=== PATIENT | female | born 1965 | race Caucasian/White ===

== ENCOUNTER 2025-03-04 00:36 | Inpatient (IN) ==
[2025-03-04] MEDS: SODIUM CHLORIDE 0.9% 1,000 ML IV ONE (01:02)
[2025-03-04] MEDS: MoRPHine SULFATE 4 MG/ML 1 ML CARP\\VIAL IV PRN (01:03)
[2025-03-04] MEDS: ONDANSETRON INJ 2 MG/ML 2 ML VIAL IV STA (01:03)
[2025-03-04 01:25] LABS: Hematocrit (blood only) 40.9 % (37.0-47.0); Hemoglobin 13.0 g/dl (12.0-16.0); Immature Granulocytes # (auto) 0.02 K/uL (0.01-0.20); Immature Granulocytes % (auto) 0.1 %; Mean Corpuscular Hemoglobin 27.4 pg (25.0-34.0); Mean Corpuscular Volume 86.3 fL (80.0-100.0); Platelet Count 344 K/uL (130-400); RDW Standard Deviation 39.8 fL (36.4-46.3); Red Blood Count 4.74 M/uL (4.20-5.40); White Blood Count 13.56 K/ul (4.8-10.8)
[2025-03-04 01:42] LABS: Alanine Aminotransferase 14.0 U/L (7-52); Albumin Globulin Ratio 1.5 (0.9-2); Alkaline Phosphatase 56.0 U/L (34-104); Anion Gap 7.0 (3-11); Bilirubin,Total 0.3 mg/dl (0.2-1.0); Blood Urea Nitrogen 16.0 mg/dl (6-23); Calcium 9.4 mg/dl (8.6-10.3); Carbon Dioxide 29.0 mmol/L (21-32); Chloride 104.0 mmol/L (98-107); Creatinine Clr Calc Pharmacy 57.2 ml/min; Globulin 2.8 gm/dl (2.5-4.0); Glucose 110.0 mg/dl (70-99(Fasting)); Lipase 81.0 U/L (11-82); Potassium 3.7 mmol/L (3.5-5.1); Sodium 140.0 mmol/L (136-145); Total Protein 7.0 gm/dl (6.0-8.3)
[2025-03-04] MEDS: OPTIRAY 320 100ml IV ONE (02:01)
[2025-03-04 02:21] LABS: Appearance Urine Clear (Clear); Bacteria Urine Automated None Seen (None Seen); Cast Urine Automated 0-2 /lpf (0-2); Glucose Urine UA Negative (Negative); RBC Urine Automated 0-2 /hpf (0-2)
--- NOTE | 2025-03-04 03:28 | CT Scan Report ---
EXAM: CT abd pelvis IV con only CLINICAL HISTORY: right side pain TECHNIQUE: CT of the abdomen and pelvis was performed with IV contrast (93 cc Optiray 320), with the following protocol: axial images with, and reconstructed coronal and sagittal images. One of the following dose reduction techniques was utilized for this exam: Automated exposure control, adjustment of the mA and/or kV according to patient size, and use of iterative reconstruction. (CTDI: 21.12 mGy, DLP: 1048.60 mGy*cm) COMPARISON: Prior CT dated 05/12/2016 FINDINGS: Appendix: The appendix is retrocecal in position. It is thickened (reaching 13 mm in girth), with heterogeneous peripheral enhancement as well as chance-appendiceal fat stranding and peritoneal reflection thickening. No evidence of appendiceal abscess or perforation. Bowel: The cecum and ascending colon are distended and loaded with fecal matter; the cecum reaches 5.9 cm in maximum diameter. Multiple sigmoid colon diverticulae, with no related pathological mural thickening or chance-colic fat stranding. No evidence of bowel obstruction or wall thickening. Liver: Enlarged in size, measuring 19 cm in the long axis. Normal shape and density. Left lobe segment 2 hypodense focal lesion, measuring 16 x 13 mm (was about 6 x 5 mm). Hepatic vasculature and biliary ducts are unremarkable. Gallbladder and Biliary System: The gallbladder is normal in size and shape. No wall thickening, pericholecystic fluid, or gallstones were identified. The common bile duct is normal in caliber without dilation. Pancreas: The pancreatic head, body, and tail are visualized and appear normal in size and density. No pancreatic masses or calcifications were noted. The pancreatic duct is not dilated. Spleen: Normal in size, shape, and density. No splenic lesions or masses were identified. Kidneys and Adrenal Glands: Both kidneys are normal in size, shape, position, and cortical thickness. No renal calculi or hydronephrosis. The adrenal glands are unremarkable. Urinary Bladder: Normal in contour and wall thickness. No intraluminal lesions identified. Uterus and Cervix: Normal in size and contour. No masses or abnormal thickening. Ovaries: Not well visualized, but no gross adnexal lesions noted. Peritoneal and Retroperitoneal Structures: No free fluid or abnormal fluid collections were identified within the abdomen or pelvis. No lymphadenopathy was noted. Bones and Soft Tissues: The bones and soft tissues are unremarkable. No fractures or abnormal masses were identified. IMPRESSION: 1. Picture suggestive of acute appendicitis - new. 2. Cecal and ascending colon distention with fecal load. 3. Non-complicated sigmoid diverticulosis - new. 4. Left hepatic lobe non-enhancing cystic-looking focal lesion - increased in size. Electronically signed by Bg Singh 03-04-2025 03:27 AM
[2025-03-04] MEDS: metroNIDAZOLE 500 MG/100 ML BAG IV STA (04:03)
[2025-03-04] MEDS: CIPROFLOXACIN / D5W 400 MG/200 ML BAG IV STA (04:03)
--- NOTE | 2025-03-04 04:10 | Surgery Consultation ---
Date of Consultation March 04, 2025 Assessment & Plan (1) Appendicitis: Due to the patient's clinical presentation and findings on CT scan the patient be admitted to the hospital. I did discuss with the treating clinician in the emergency department and due to the suspected portal vein thrombus that she is going to be admitted on the medical service. Surgical recommendations are as follows: Analgesics to be provided Antiemetics to be provided She will be hydrated with IV fluids Antibiotics were initiateddue to her penicillin allergy she will be given Cipro and Flagyl Anticipation of potential appendectomy I will check a preoperative chest x- ray, EKG, coagulation studies I have discussed directly with the hospitalist service and asked them to provide recommendations concerning the patient's portal vein thrombosis as to whether this would require delaying any potential appendectomy Would recommend keeping the patient n.p.o. for the present time as she may require appendectomy, but as noted above this will be depend on medical recommendations concerning the possible portal vein thrombosis Would recommend utilizing only SCDs for the present time for DVT prevention until his ascertain whether or not the patient will require full anticoagulation for the potential portal vein thrombosis or if she requires surgical intervention At the time of my interview the patient was nontoxic-appearingshe was normotensive without tachycardia or fever. Additional recommendations be forthcoming based on her clinical course as it unfolds Addendum: Following my initial visit with the patient the following items were completed: Coagulation studies which showed no abnormalities Checks x-ray that shows no evidence of pneumonia EKG that shows normal sinus rhythm without changes indicative of acute ischemia test that was negative Addendum: Gallbladder ultrasound has been formally been read by radiology and the interpreting radiologist did not comment on portal vein thrombosis. I discussed these findings with the primary medical service and they feel they would like to have gastroenterology review images to ensure there is no portal vein thrombosis. If no portal vein thrombosis is present we will likely proceed with appendectomy pending OR availability Supervising Physician Co-Signing Physician Notes I independently saw and examined the patient, and I agree with the assessment and plan of care. History of Present Illness Reason for Consultation: Abdominal pain History of Present Illness This is a 59-year-old female who presented to the emergency department secondary to abdominal pain that began approximate 10:00 PM on 03/03/2025. Patient notes that the pain is located primarily in the right lower quadrant with some radiation to her right flank. She does not report any other modifying or mitigating factors. She denies any nausea or vomiting and denies any fevers, shakes, or chills. Patient has had prior abdominal surgeries in the form of a . She also reports that she has had a uterine ablation. Since arrival to the hospital the patient has had labs and imaging which I independently reviewed. Patient did have a CT scan of the abdomen pelvis that showed a retrocecal appendix which appeared to be thickened measuring appr oximately 13 mm in girth. There are some periappendiceal fat stranding raising concern for acute appendicitis. Labs include a CBC were white blood cell count was elevated 13.5. Hemoglobin and hematocrit as well as the platelet count were normal. Chemistry profile showed sodium and potassium as well as BUN and creatinine were within normal range. Urinalysis showed 6-10 white blood cells per high-power field and 2+ leukocyte esterase. There were no nitrites or bacteria noted on this study. In addition, the patient did have a gallbladder ultrasound which has not been formally read by radiology. The inter com servicer did notify the clinician in the emergency department that patient had a potential portal vein thrombosis. At the time of my interview she was resting comfortably in bed and she was in no distress Allergies Allergy/AdvReac Type Severity Reaction Status Date / Time pollen extracts Allergy Intermediate ITCHY Verified 03/04/25 01:59 EYES, SNEEZING Penicillins AdvReac Intermediate nausea/vomi Verified 03/04/25 01:59 ting Home Medications Medication Instructions Recorded Confirmed Type albuterol sulfate 90 mcg/actuation 1 inh inhalation DIRECTED PRN 03/04/25 03/04/25 History aerosol inhaler Shortness Of Breath Or Wheezing montelukast 10 mg tablet 10 mg PO DAILY PRN Congestion 03/04/25 03/04/25 History ([place]) Patient History Medical History History of menorrhagia Migraine headache History of abnormal mammogram Surgical History Status post hysteroscopic ablation of endometrium S/P section S/P breast biopsy Family History Other No significant family history Social History Smoking Status: Never smoker Hx Alcohol Use: No Hx Substance Use: Yes Substance Use Type Other:: ketamine Preferred Language: German Beliefs That Will Affect Care: None Current Living Situation: Spouse Other Information That Helps Us Care for You: No Feels Safe at Home: Yes Safety Concerns: Feels Safe At This Time Review of Systems Review of Systems: All systems reviewed & are unremarkable except as noted in HPI & below Physical Exam Constitutional: WD/WN, vitals as above Eyes: no conjunctival abnormality ENMT: Ears: no hearing impairment and no external ear abnormality Mouth: no oropharynx abnormality Neck: trachea midline Respiratory: normal respiratory effort; no respiratory distress and no labored breathing Cardiovascular: Rate/Rhythm: regular rate and regular rhythm Gastrointestinal (Abdomen): Abdomen is soft without distention. There is no rebound tenderness or guarding the patient did have pain with palpation of the right lower quadrant McBurney's point. Rovsing sign is also noted to be positive. Musculoskeletal: No calf tenderness. Pedal pulses are palpable Skin: no rashes Neurologic: moves all extremities Psychiatric: A+Ox3, euthymic affect Results & Data Vital Signs (Past 12 Hours) Vital Signs Temp Pulse Pulse Resp BP BP Pulse Ox 03/04/25 02:00 36.7 C 73 19 121/81 93 03/04/25 01:09 82 03/04/25 00:52 36.7 C 86 22 155/98 H 96 03/04/25 00:39 36.4 C L 90 19 130/85 97 O2 Del Method 03/04/25 02:00 Room Air 03/04/25 01:09 03/04/25 00:52 Room Air 03/04/25 00:39 Room Air PG Care Time/CCT Total # of Minutes Spent Total Time Spent with Patient: Total time spent is greater than 50% in coordination of care (as documented) at patient's floor/unit and/or counseling patient: Coding Level of Care Code 31701 IN/OBS CONSULT LVL 5,80M Diagnoses Appendicitis K37
[2025-03-04 04:21] LABS: Pregnancy Test, Serum Negative (Negative)
[2025-03-04 04:34] LABS: INR 0.9 (0.9-1.1); Partial Thromboplastin Time 26 Seconds (21-31); Prothrombin Time 10.0 Seconds (9.0-12.0)
--- NOTE | 2025-03-04 04:49 | Ultrasound Report ---
EXAM: US gallbladder CLINICAL HISTORY: Right side pain. TECHNIQUE: Limited ultrasound of the liver and gallbladder was performed in greyscale and Doppler. Multiple images were obtained in transverse and longitudinal planes. COMPARISON: CT dated 03/04/2025 01:08:00 MOLDED [employer] INSPECTOR was reviewed. FINDINGS: Liver: Mild hepatomegaly (16.6 cm) with normal echotexture. Anechoic structure adjacent to the left portal vein demonstrates no internal flow or echogenic debris. The remaining hepatic vasculature is unremarkable. Gallbladder: Normal gallbladder wall thickness (1.5 mm). The gallbladder is normal in size and contour. No cholelithiasis, wall thickening, pericholecystic fluid, or sonographic Carbajal sign. Biliary Tree: The common bile duct measures 4.9 mm (normal caliber). No biliary dilation or choledocholithiasis. Pancreas: Visualized portions appear normal; evaluation limited by overlying bowel gas. The pancreatic duct measures 2 mm. Right Kidney: No hydronephrosis, masses, or calculi. IMPRESSION: 1. No cholelithiasis. 2. Anechoic structure adjacent to the left portal vein without flow, correlating with prior CT consistent with a benign cyst. Unchanged. 3. Mild hepatomegaly. Unchanged. 4. Findings correlate with prior recent CT abdomen. Electronically signed by Bg Singh 03-04-2025 04:49 AM
[2025-03-04] MEDS: SODIUM CHLORIDE 0.9% 1,000 ML IV SCH (05:02)
--- NOTE | 2025-03-04 05:06 | History & Physical Report ---
Date of Service March 04, 2025 Assessment & Plan (1) Appendicitis: Plan: 59-year-old female with past medical history significant for irritable bowel syndrome, asthma moderate persistent presents with abdominal pain. Pain started tonight at 10 PM in the epigastric and the right side of the abdomen region. Pain was 8/10 in severity when she came in and with pain medication pain is improved. No nausea. No fevers. No chest pain or shortness of breath. No headache. No runny nose or sore throat. No cough. Normal bowel and bladder movements. Hemodynamics are okay. Appendicitis On CAT scan N.p.o. IV fluids Pain control Empiric Cipro and Flagyl as patient is allergic to penicillin Surgery consulted Plan for surgery if no PVT confirmed Close monitor Question of portal vein thrombosis Concern of portal vein thrombosis on ultrasound Will consult GI for further recommendation for any further imagings Asthma Continue home inhalers stable currently Likely NSAID induced ulcerations of ascending and transverse colon ,colonoscopy in December 2017 Her symptoms resolved with discontinuation of NSAIDs.Completed course of budesonide at that time as per GI notes in [facility]. Because symptoms improved repeat colonoscopy was deferred at that time Plan was to repeat colonoscopy in 5 years. DVT prophylaxis SCDs Disposition Medical floor Full code. History of Present Illness Chief Complaint: Abdominal pain Primary Care Provider: Dilcia Jaimes, 59-year-old female with past medical history significant for irritable bowel syndrome, asthma moderate persistent presents with abdominal pain. Pain started tonight at 10 PM in the epigastric and the right side of the abdomen region. Pa in was 8/10 in severity when she came in and with pain medication pain is improved. No nausea. No fevers. No chest pain or shortness of breath. No headache. No runny nose or sore throat. No cough. Normal bowel and bladder movements. Hemodynamics are okay. Past medical history. As mentioned above. Past surgical history. Breast lesion excision. . Colonoscopy biopsy. EGD. Endometrial ablation. Social history. . No smoking. No alcohol use. No drug use. Family history. Father had dementia. Stroke. Brother had epilepsy. Maternal grandmother had stroke. Allergies Allergy/AdvReac Type Severity Reaction Status Date / Time pollen extracts Allergy Intermediate ITCHY Verified 03/04/25 01:59 EYES, SNEEZING Penicillins AdvReac Intermediate nausea/vomi Verified 03/04/25 01:59 ting Home Medications Medication Instructions Recorded Confirmed Type albuterol sulfate 90 mcg/actuation 1 inh inhalation DIRECTED PRN 03/04/25 03/04/25 History aerosol inhaler Shortness Of Breath Or Wheezing montelukast 10 mg tablet 10 mg PO DAILY PRN Congestion 03/04/25 03/04/25 History (Yadira) Past Med/Surg History Problem List Appendicitis Salmonella enteritis (Acute) Medical History History of menorrhagia Migraine headache History of abnormal mammogram Surgical History Status post hysteroscopic ablation of endometrium S/P section S/P breast biopsy Family History Other No significant family history Social History Smoking Status: Never smoker Hx Alcohol Use: No Hx Substance Use: Yes Substance Use Type Other:: ketamine Preferred Language: Kenyan Beliefs That Will Affect Care: None Current Living Situation: Spouse Other Information That Helps Us Care for You: No Feels Safe at Home: Yes Safety Concerns: Feels Safe At This Time Review of Systems Review of Systems: All systems reviewed & are unremarkable except as noted in HPI & below Physical Exam Physical Exam: General-Not in distress Head- atraumatic Eyes- PERRL. ENT- oropharynx clear Neck- supple, no JVD. Lungs- clear to auscultation no wheezing or crackles Heart- regular rhythm; no murmur, no gallop. Abdomen- normal bowel sounds, soft, tenderness in ruq and rlq region, mild guarding, no distension Extremities- no pretibial edema, no erythema seen Neuro- alert, oriented PERRL, no facial palsy; no dysarthria; moves extremities Results & Data Results & Data Vital Signs (Past 12 Hours) Vital Signs Temp Pulse Pulse Resp BP BP Pulse Ox 03/04/25 04:00 36.7 C 90 18 165/97 H 93 03/04/25 02:00 36.7 C 73 19 121/81 93 03/04/25 01:09 82 03/04/25 00:52 36.7 C 86 22 155/98 H 96 03/04/25 00:39 36.4 C L 90 19 130/85 97 O2 Del Method 03/04/25 04:00 Room Air 03/04/25 02:00 Room Air 03/04/25 01:09 03/04/25 00:52 Room Air 03/04/25 00:39 Room Air Diagnostic Findings Laboratory Results WBC 13.56 K/ul (4.8-10.8) H 03/04/25 00:54 RBC 4.74 M/uL (4.20-5.40) 03/04/25 00:54 Hgb 13.0 g/dl (12.0-16.0) 03/04/25 00:54 POC Hgb 13.9 g/dl (12.0-16.0) 03/04/25 00:59 Hct 40.9 % (37.0-47.0) 03/04/25 00:54 POC Hct 41 % (37-47) 03/04/25 00:59 MCV 86.3 fL (80.0-100.0) 03/04/25 00:54 MCH 27.4 pg (25.0-34.0) 03/04/25 00:54 MCHC 31.8 g/dL (32.0-36.0) L 03/04/25 00:54 RDW Std Deviation 39.8 fL (36.4-46.3) 03/04/25 00:54 RDW Coeff of Amanda 12.6 % (11.5-14.5) 03/04/25 00:54 Plt Count 344 K/uL (130-400) 03/04/25 00:54 MPV 9.5 fL (9.4-12.4) 03/04/25 00:54 Immature Gran % (Auto) 0.1 % 03/04/25 00:54 Neut % (Auto) 65.6 % 03/04/25 00:54 Lymph % (Auto) 27.7 % 03/04/25 00:54 [place] % (Auto) 5.4 % 03/04/25 00:54 Eos % (Auto) 0.8 % 03/04/25 00:54 Baso % (Auto) 0.4 % 03/04/25 00:54 Neut # (Auto) 8.89 K/uL (1.40-6.50) H 03/04/25 00:54 Lymph # (Auto) 3.76 K/uL (1.20-3.40) H 03/04/25 00:54 [place] # (Auto) 0.73 K/uL (0.11-0.59) H 03/04/25 00:54 Eos # (Auto) 0.11 K/uL (0.00-0.50) 03/04/25 00:54 Baso # (Auto) 0.05 K/uL (0.00-0.20) 03/04/25 00:54 Immature Gran # (Auto) 0.02 K/uL (0.01-0.20) 03/04/25 00:54 PT 10.0 Seconds (9.0-12.0) 03/04/25 00:49 INR 0.9 (0.9-1.1) 03/04/25 00:49 APTT 26 Seconds (21-31) 03/04/25 00:49 PTT Ratio 1.0 03/04/25 00:49 POC Sodium 142 mmol/L (135-144) 03/04/25 00:59 Sodium 140 mmol/L (136-145) 03/04/25 00:54 POC Potassium 3.5 mmol/L (3.3-5.0) 03/04/25 00:59 Potassium 3.7 mmol/L (3.5-5.1) 03/04/25 00:54 POC Chloride 102 mmol/L (101-112) 03/04/25 00:59 Chloride 104 mmol/L (98-107) 03/04/25 00:54 Carbon Dioxide 29 mmol/L (21-32) 03/04/25 00:54 POC Total CO2 27 mmol/L (24-31) 03/04/25 00:59 Anion Gap 7 (3-11) 03/04/25 00:54 POC Anion Gap 17.0 mmol/L (16-25) 03/04/25 00:59 POC BUN 17 mg/dl (7-18) 03/04/25 00:59 BUN 16 mg/dl (6-23) 03/04/25 00:54 Creatinine 1.12 mg/dl (0.6-1.2) 03/04/25 00:54 POC Creatinine 1.2 mg/dl (0.6-1.3) 03/04/25 00:59 Est Cr Clr Drug Dosing 57.2 ml/min 03/04/25 00:54 eGFR 57.35 03/04/25 00:54 BUN/Creatinine Ratio 14.3 (10-20) 03/04/25 00:54 Glucose 110 mg/dl (70-99(Fasting)) H 03/04/25 00:54 POC Glucose (other) 114 mg/dl (70-99) H 03/04/25 00:59 Calcium 9.4 mg/dl (8.6-10.3) 03/04/25 00:54 POC Ioniz Calcium [place] 1.15 mmol/l (1.12-1.32) 03/04/25 00:59 Total Bilirubin 0.3 mg/dl (0.2-1.0) 03/04/25 00:54 AST 15 U/L (13-39) 03/04/25 00:54 ALT 14 U/L (7-52) 03/04/25 00:54 Alkaline Phosphatase 56 U/L (34-104) 03/04/25 00:54 Total Protein 7.0 gm/dl (6.0-8.3) 03/04/25 00:54 Albumin 4.2 gm/dl (3.4-5.0) 03/04/25 00:54 Globulin 2.8 gm/dl (2.5-4.0) 03/04/25 00:54 Albumin/Globulin Ratio 1.5 (0.9-2) 03/04/25 00:54 Lipase 81 U/L (11-82) 03/04/25 00:54 HCG, Qual Negative (Negative) 03/04/25 00:49 Urine Color Yellow 03/04/25 02:12 Urine Appearance Clear (Clear) 03/04/25 02:12 Urine pH 7.0 (4.5-7.5) 03/04/25 02:12 Ur Specific [place] 1.025 (1.000-1.030) 03/04/25 02:12 Urine Protein Negative (Negative) 03/04/25 02:12 Urine Glucose (UA) Negative (Negative) 03/04/25 02:12 Urine Ketones Negative (Negative) 03/04/25 02:12 Urine Blood Negative (Negative) 03/04/25 02:12 Urine Nitrite Negative (Negative) 03/04/25 02:12 Urine Bilirubin Negative (Negative) 03/04/25 02:12 Urine Urobilinogen Negative (Negative) 03/04/25 02:12 Ur Leukocyte Esterase 2+ (Negative) H 03/04/25 02:12 Urine WBC (Auto) 6-10 /hpf (0-5) H 03/04/25 02:12 Urine RBC (Auto) 0-2 /hpf (0-2) 03/04/25 02:12 U Hyaline Cast (Auto) 0-2 /lpf (0-2) 03/04/25 02:12 U Epithel Cells (Auto) 6-10 /hpf (0-2) H 03/04/25 02:12 Urine Bacteria (Auto) None Seen (None Seen) 03/04/25 02:12 Urine Comment 03/04/25 02:12 Impressions Abdomen/Pelvis CT 03/04/25 00:54 EXAM: CT abd pelvis IV con only CLINICAL HISTORY: right side pain TECHNIQUE: CT of the abdomen and pelvis was performed with IV contrast (93 cc Optiray 320), with the following protocol: axial images with, and reconstructed coronal and sagittal images. One of the following dose reduction techniques was utilized for this exam: Automated exposure control, adjustment of the mA and/or kV according to patient size, and use of iterative reconstruction. (CTDI: 21.12 mGy, DLP: 1048.60 mGy*cm) COMPARISON: Prior CT dated 05/12/2016 FINDINGS: Appendix: The appendix is retrocecal in position. It is thickened (reaching 13 mm in girth), with heterogeneous peripheral enhancement as well as chance-appendiceal fat stranding and peritoneal reflection thickening. No evidence of appendiceal abscess or perforation. Bowel: The cecum and ascending colon are distended and loaded with fecal matter; the cecum reaches 5.9 cm in maximum diameter. Multiple sigmoid colon diverticulae, with no related pathological mural thickening or chance-colic fat stranding. No evidence of bowel obstruction or wall thickening. Liver: Enlarged in size, measuring 19 cm in the long axis. Normal shape and density. Left lobe segment 2 hypodense focal lesion, measuring 16 x 13 mm (was about 6 x 5 mm). Hepatic vasculature and biliary ducts are unremarkable. Gallbladder and Biliary System: The gallbladder is normal in size and shape. No wall thickening, pericholecystic fluid, or gallstones were identified. The common bile duct is normal in caliber without dilation. Pancreas: The pancreatic head, body, and tail are visualized and appear normal in size and density. No pancreatic masses or calcifications were noted. The pancreatic duct is not dilated. Spleen: Normal in size, shape, and density. No splenic lesions or masses were identified. Kidneys and Adrenal Glands: Both kidneys are normal in size, shape, position, and cortical thickness. No renal calculi or hydronephrosis. The adrenal glands are unremarkable. Urinary Bladder: Normal in contour and wall thickness. No intraluminal lesions identified. Uterus and Cervix: Normal in size and contour. No masses or abnormal thickening. Ovaries: Not well visualized, but no gross adnexal lesions noted. Peritoneal and Retroperitoneal Structures: No free fluid or abnormal fluid collections were identified within the abdomen or pelvis. No lymphadenopathy was noted. Bones and Soft Tissues: The bones and soft tissues are unremarkable. No fractures or abnormal masses were identified. IMPRESSION: 1. Picture suggestive of acute appendicitis - new. 2. Cecal and ascending colon distention with fecal load. 3. Non-complicated sigmoid diverticulosis - new. 4. Left hepatic lobe non-enhancing cystic-looking focal lesion - increased in size. Electronically signed by Bg Singh 03-04-2025 03:27 AM Gallbladder Ultrasound 03/04/25 00:54 EXAM: US gallbladder CLINICAL HISTORY: Right side pain. TECHNIQUE: Limited ultrasound of the liver and gallbladder was performed in greyscale and Doppler. Multiple images were obtained in transverse and longitudinal planes. COMPARISON: CT dated 03/04/2025 01:08:00 NURSING FACULTY was reviewed. FINDINGS: Liver: Mild hepatomegaly (16.6 cm) with normal echotexture. Anechoic structure adjacent to the left portal vein demonstrates no internal flow or echogenic debris. The remaining hepatic vasculature is unremarkable. Gallbladder: Normal gallbladder wall thickness (1.5 mm). The gallbladder is normal in size and contour. No cholelithiasis, wall thickening, pericholecystic fluid, or sonographic Carbajal sign. Biliary Tree: The common bile duct measures 4.9 mm (normal caliber). No biliary dilation or choledocholithiasis. Pancreas: Visualized portions appear normal; evaluation limited by overlying bowel gas. The pancreatic duct measures 2 mm. Right Kidney: No hydronephrosis, masses, or calculi. IMPRESSION: 1. No cholelithiasis. 2. Anechoic structure adjacent to the left portal vein without flow, correlating with prior CT consistent with a benign cyst. Unchanged. 3. Mild hepatomegaly. Unchanged. 4. Findings correlate with prior recent CT abdomen. Electronically signed by Bg Singh 03-04-2025 04:49 AM ECG Additional Comments: ECG normal sinus rhythm rate of 80. Possible left atrial enlargement. No significant change was found. QTc 424. Code Status & VTE Plan VTE Prophylaxis Plan VTE Prophylaxis will be ordered: Yes
[2025-03-04] MEDS ORDERED: ONDANSETRON INJ 2 MG/ML 2 ML VIAL IV PRN (05:48)
[2025-03-04] MEDS ORDERED: MONTELUKAST SODIUM 10 MG TABLET PO PRN (05:48)
[2025-03-04] MEDS ORDERED: HYDROmorphone INJ 0.5 MG/0.5 ML SYR IV PRN (05:48)
[2025-03-04] MEDS ORDERED: ALBUTEROL HFA 8 GM INHALER INH PRN (05:48)
--- NOTE | 2025-03-04 06:24 | Emergency Department Note ---
History of Present Illness General Chief complaint: Abdominal Pain Stated complaint: RT ABD PAIN Time Seen by Provider: 03/04/25 00:46 History of Present Illness Maximum Pain Intensity: 4 This is a 59-year-old female presenting to the emergency department for evaluation of right-sided abdominal pain. Sometimes the pain will radiate into her back. The symptoms began around 9 PM, roughly 3 hours prior to arrival. Patient had food around 5 PM, and felt well afterwards. She does have a history of section but no other abdominal surgeries. 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 The services are roughly 3 hours away and patient is distraught that she is not having the pain. Patient is nauseated without vomiting. No difficulty going to the bathroom. No relief with Tums or Pepto-Bismol. Discomfort is rated a 4/10. Home Medications Medication Instructions Recorded Confirmed Type albuterol sulfate 90 mcg/actuation 1 inh inhalation DIRECTED PRN 03/04/25 03/04/25 History aerosol inhaler Shortness Of Breath Or Wheezing montelukast 10 mg tablet 10 mg PO DAILY PRN Congestion 03/04/25 03/04/25 History (Singulair) oxycodone 5 mg tablet 5 mg PO Q6H PRN pain #12 tabs 03/04/25 Rx Allergies Allergy/AdvReac Type Severity Reaction Status Date / Time pollen extracts Allergy Intermediate ITCHY Verified 03/04/25 10:55 EYES, SNEEZING Penicillins AdvReac Intermediate nausea/vomi Verified 03/04/25 10:55 ting Past Med/Surg History Problem List (Updated 03/04/25 @ 21:25 by Nasir Durand PA-C) Appendicitis (Acute) Salmonella enteritis (Acute) Medical History (Updated 03/04/25 @ 21:25 by Nasir Durand PA-C) History of menorrhagia Migraine headache History of abnormal mammogram Surgical History (Updated 03/04/25 @ 15:55 by Natalya Cast RN) History of laparoscopic appendectomy (03/04/25) Robotic assisted Laparoscopic Appendectomy(Not Applicable) - Zuleika Bruce MD Status post hysteroscopic ablation of endometrium S/P section S/P breast biopsy Family History Other No significant family history Social History Smoking Status: Never smoker Hx Alcohol Use: No Hx Substance Use: Yes Substance Use Type Other:: ketamine Preferred Language: Indian Beliefs That Will Affect Care: None Current Living Situation: Spouse Feels Safe at Home: Yes Review of Systems A total of 10 systems reviewed and were otherwise negative Physical Exam Vital Signs Vital Signs - 24 hr 03/04/25 00:39 03/04/25 00:52 03/04/25 01:09 Temperature 36.4 C L 36.7 C Temperature Source Temporal Artery Scan Oral Pulse Rate 90 82 Pulse Rate [Right Finger] 86 Respiratory Rate 19 22 Respiratory Effort / Characteristics Non-Labored Spontaneous Non-Labored Spontaneous Respiratory Depth Normal Normal Respiratory Pattern Regular Blood Pressure 130/85 Blood Pressure [Right Arm] 155/98 H Blood Pressure Mean 100 Blood Pressure Mean [Right Arm] 117 Pulse Oximetry 97 96 Oxygen Delivery Method Room Air Room Air Sepsis Recent Fever Within 48 Hours No Sepsis New/Unexplained Change in Mental Status N/A Sepsis Action Taken by Nursing No Action Required 03/04/25 02:00 03/04/25 04:00 Temperature 36.7 C 36.7 C Temperature Source Oral Oral Pulse Rate Pulse Rate [Right Finger] 73 90 Respiratory Rate 19 18 Respiratory Effort / Characteristics Non-Labored Spontaneous Non-Labored Spontaneous Respiratory Depth Normal Normal Respiratory Pattern Regular Regular Blood Pressure Blood Pressure [Right Arm] 121/81 165/97 H Blood Pressure Mean Blood Pressure Mean [Right Arm] 94 119 Pulse Oximetry 93 93 Oxygen Delivery Method Room Air Room Air Sepsis Recent Fever Within 48 Hours Sepsis New/Unexplained Change in Mental Status Sepsis Action Taken by Nursing VITALS: Vitals are noted on the nurse's note and reviewed by myself. Vital signs stable. GENERAL: Well-developed, well-nourished, white female, who is moderately uncomfortable appearing. She is pleasant and cooperative. HEAD: Normocephalic atraumatic. NECK: Supple without nuchal rigidity. No lymphadenopathy. No thyromegaly. Cervical spine is nontender. HEART: Regular rate and rhythm without murmurs gallops or rubs. LUNGS: Clear to auscultation bilaterally without wheezes, rales or rhonchi. No retractions or accessory muscle use. ABDOMEN: Positive normal bowel sounds x 4. Soft, with tenderness in the right side abdomen. There is more tenderness in the right lower quadrant, however some tenderness in the right upper quadrant is identified. No CVA tenderness. No left side or periumbilical tenderness. NEURO: Patient was alert and oriented to person place and time. CN II through XII grossly intact. Course Administered Medications Discontinued Medications Bupivacaine HCl (Bupivacaine 0.5 % 5 Mg/1 Ml Mpf 30ml Vial) Confirm Administered Dose 30 ml .ROUTE .STK-MED ONE Stop: 03/04/25 11:39 Last Admin: 03/04/25 13:24 Dose: 30 ml Documented By: [id number] Hydromorphone HCl (Hydromorphone Inj 2 Mg/Ml Syr/Vial) 0.5 mg IV Q5M PRN PRN Reason: PACU Use Only-Pain Stop: 03/04/25 19:35 Last Admin: 03/04/25 14:12 Dose: 0.5 mg Documented By: Admin: 03/04/25 14:06 Dose: 0.5 mg Documented By: Admin: 03/04/25 14:02 Dose: 0.5 mg Documented By: Admin: 03/04/25 13:57 Dose: 0.5 mg Documented By: EDIE Sodium Chloride (Nss) 1,000 mls @ 999 mls/hr IV .Q1H1M ONE Stop: 03/04/25 01:54 Last Infusion: 03/04/25 02:15 Dose: Infused Documented By: Admin: 03/04/25 01:02 Dose: 999 mls/hr Documented By: AUBREY Ciprofloxacin (Cipro / D5w) 400 mg in 200 mls @ 100 mls/hr IV NOW STA; Protocol Stop: 03/04/25 05:44 Last Infusion: 03/04/25 06:38 Dose: Infused Documented By: Admin: 03/04/25 04:03 Dose: 100 mls/hr Documented By: RIKI Metronidazole (Flagyl) 500 mg in 100 mls @ 100 mls/hr IV NOW STA; Protocol Stop: 03/04/25 04:44 Last Infusion: 03/04/25 05:19 Dose: Infused Documented By: Admin: 03/04/25 04:03 Dose: 100 mls/hr Documented By: RIKI Sodium Chloride (Nss) 1,000 mls @ 100 mls/hr IV .Q10H BAMBI Stop: 03/07/25 04:29 Last Admin: 03/04/25 15:02 Dose: Not Given Documented By: Infusion: 03/04/25 15:02 Dose: Infused Documented By: Admin: 03/04/25 05:02 Dose: 100 mls/hr Documented By: AUBREY Metronidazole (Flagyl) 500 mg in 100 mls @ 100 mls/hr IV Q8H BAMBI; Protocol Stop: 03/14/25 13:59 Last Admin: 03/04/25 15:02 Dose: Not Given Documented By: ANDREAS Acetaminophen (Ofirmev) 1,000 mg in 100 mls @ 400 mls/hr IV Q8H PRN PRN Reason: Pain or Fever Stop: 03/07/25 05:47 Last Infusion: 03/04/25 19:01 Dose: Infused Documented By: Admin: 03/04/25 18:31 Dose: 400 mls/hr Documented By: ANDREAS Lactated Ringer's (Lr) 1,000 mls @ 15 mls/hr IV .Q24H BAMBI Stop: 03/07/25 10:59 Last Infusion: 03/04/25 12:05 Dose: Infused Documented By: Admin: 03/04/25 11:25 Dose: 15 mls/hr Documented By: ANTONIO Cefazolin Sodium (Ancef 2000mg) 2,000 mg in 15 mls @ 3.75 mls/min IV PREOP ONE; Protocol Stop: 03/04/25 13:07 Last Admin: 03/04/25 12:36 Dose: 3.75 mls/min Documented By: BENITO Ioversol (Optiray 320 100ml) 93 ml IV ONCE ONE Stop: 03/04/25 02:02 Last Admin: 03/04/25 02:01 Dose: 93 ml Documented By: SABRINA Morphine Sulfate (Morphine Sulfate 4 Mg/Ml 1 Ml Carp\Vial) 4 mg IV Q30M PRN PRN Reason: Pain Stop: 03/18/25 00:53 Last Admin: 03/04/25 01:54 Dose: 4 mg Documented By: Admin: 03/04/25 01:03 Dose: 4 mg Documented By: AUBREY Ondansetron HCl (Ondansetron Inj 2 Mg/Ml 2 Ml Vial) 4 mg IV NOW STA Stop: 03/04/25 00:55 Last Admin: 03/04/25 01:03 Dose: 4 mg Documented By: AUBREY Medical Decision Making Differential Diagnosis Differential diagnosis: Etiologies such as biliary colic, cholecystitis, hepatitis, pancreatitis, cardiac disease, pancreatitis, gastritis, peptic ulcer disease, appendicitis, cystitis, diverticulitis, mesenteric ischemia, inflammatory bowel disease, ileus, bowel obstruction, testicular/adnexal torsion, aortic pathology, shingles, as well as others were considered Laboratory Data 03/04/25 07:16 03/04/25 07:16 Lab Results 03/04/25 03/04/25 03/04/25 Range/Units 00:49 00:54 00:59 WBC 13.56 H (4.8-10.8) K/ul RBC 4.74 (4.20-5.40) M/uL Hgb 13.0 (12.0-16.0) g/dl POC Hgb 13.9 (12.0-16.0) g/dl Hct 40.9 (37.0-47.0) % POC Hct 41 (37-47) % MCV 86.3 (80.0-100.0) fL MCH 27.4 (25.0-34.0) pg MCHC 31.8 L (32.0-36.0) g/dL RDW Std Deviation 39.8 (36.4-46.3) fL RDW Coeff of Amanda 12.6 (11.5-14.5) % Plt Count 344 (130-400) K/uL MPV 9.5 (9.4-12.4) fL Immature Gran % (Auto) 0.1 % Neut % (Auto) 65.6 % Lymph % (Auto) 27.7 % [place] % (Auto) 5.4 % Eos % (Auto) 0.8 % Baso % (Auto) 0.4 % Neut # (Auto) 8.89 H (1.40-6.50) K/uL Lymph # (Auto) 3.76 H (1.20-3.40) K/uL [place] # (Auto) 0.73 H (0.11-0.59) K/uL Eos # (Auto) 0.11 (0.00-0.50) K/uL Baso # (Auto) 0.05 (0.00-0.20) K/uL Immature Gran # (Auto) 0.02 (0.01-0.20) K/uL PT 10.0 (9.0-12.0) Seconds INR 0.9 (0.9-1.1) APTT 26 (21-31) Seconds PTT Ratio 1.0 POC Sodium 142 (135-144) mmol/L Sodium 140 (136-145) mmol/L POC Potassium 3.5 (3.3-5.0) mmol/L Potassium 3.7 (3.5-5.1) mmol/L POC Chloride 102 (101-112) mmol/L Chloride 104 (98-107) mmol/L Carbon Dioxide 29 (21-32) mmol/L POC Total CO2 27 (24-31) mmol/L Anion Gap 7 (3-11) POC Anion Gap 17.0 (16-25) mmol/L POC BUN 17 (7-18) mg/dl BUN 16 (6-23) mg/dl Creatinine 1.12 (0.6-1.2) mg/dl POC Creatinine 1.2 (0.6-1.3) mg/dl Est Cr Clr Drug Dosing 57.2 ml/min eGFR 57.35 BUN/Creatinine Ratio 14.3 (10-20) Glucose 110 H (70-99(Fasting)) mg/dl POC Glucose (other) 114 H (70-99) mg/dl Calcium 9.4 (8.6-10.3) mg/dl POC Ioniz Calcium Rafita 1.15 (1.12-1.32) mmol/l Total Bilirubin 0.3 (0.2-1.0) mg/dl AST 15 (13-39) U/L ALT 14 (7-52) U/L Alkaline Phosphatase 56 (34-104) U/L Total Protein 7.0 (6.0-8.3) gm/dl Albumin 4.2 (3.4-5.0) gm/dl Globulin 2.8 (2.5-4.0) gm/dl Albumin/Globulin Ratio 1.5 (0.9-2) Lipase 81 (11-82) U/L HCG, Qual Negative (Negative) Urine Color Urine Appearance (Clear) Urine pH (4.5-7.5) Ur Specific [place] (1.000-1.030) Urine Protein (Negative) Urine Glucose (UA) (Negative) Urine Ketones (Negative) Urine Blood (Negative) Urine Nitrite (Negative) Urine Bilirubin (Negative) Urine Urobilinogen (Negative) Ur Leukocyte Esterase (Negative) Urine WBC (Auto) (0-5) /hpf Urine RBC (Auto) (0-2) /hpf U Hyaline Cast (Auto) (0-2) /lpf U Epithel Cells (Auto) (0-2) /hpf Urine Bacteria (Auto) (None Seen) Urine Comment 03/04/25 Range/Units 02:12 WBC (4.8-10.8) K/ul RBC (4.20-5.40) M/uL Hgb (12.0-16.0) g/dl POC Hgb (12.0-16.0) g/dl Hct (37.0-47.0) % POC Hct (37-47) % MCV (80.0-100.0) fL MCH (25.0-34.0) pg MCHC (32.0-36.0) g/dL RDW Std Deviation (36.4-46.3) fL RDW Coeff of Amanda (11.5-14.5) % Plt Count (130-400) K/uL MPV (9.4-12.4) fL Immature Gran % (Auto) % Neut % (Auto) % Lymph % (Auto) % [place] % (Auto) % Eos % (Auto) % Baso % (Auto) % Neut # (Auto) (1.40-6.50) K/uL Lymph # (Auto) (1.20-3.40) K/uL [place] # (Auto) (0.11-0.59) K/uL Eos # (Auto) (0.00-0.50) K/uL Baso # (Auto) (0.00-0.20) K/uL Immature Gran # (Auto) (0.01-0.20) K/uL PT (9.0-12.0) Seconds INR (0.9-1.1) APTT (21-31) Seconds PTT Ratio POC Sodium (135-144) mmol/L Sodium (136-145) mmol/L POC Potassium (3.3-5.0) mmol/L Potassium (3.5-5.1) mmol/L POC Chloride (101-112) mmol/L Chloride (98-107) mmol/L Carbon Dioxide (21-32) mmol/L POC Total CO2 (24-31) mmol/L Anion Gap (3-11) POC Anion Gap (16-25) mmol/L POC BUN (7-18) mg/dl BUN (6-23) mg/dl Creatinine (0.6-1.2) mg/dl POC Creatinine (0.6-1.3) mg/dl Est Cr Clr Drug Dosing ml/min eGFR BUN/Creatinine Ratio (10-20) Glucose (70-99(Fasting)) mg/dl POC Glucose (other) (70-99) mg/dl Calcium (8.6-10.3) mg/dl POC Ioniz Calcium Rafita (1.12-1.32) mmol/l Total Bilirubin (0.2-1.0) mg/dl AST (13-39) U/L ALT (7-52) U/L Alkaline Phosphatase (34-104) U/L Total Protein (6.0-8.3) gm/dl Albumin (3.4-5.0) gm/dl Globulin (2.5-4.0) gm/dl Albumin/Globulin Ratio (0.9-2) Lipase (11-82) U/L HCG, Qual (Negative) Urine Color Yellow Urine Appearance Clear (Clear) Urine pH 7.0 (4.5-7.5) Ur Specific [place] 1.025 (1.000-1.030) Urine Protein Negative (Negative) Urine Glucose (UA) Negative (Negative) Urine Ketones Negative (Negative) Urine Blood Negative (Negative) Urine Nitrite Negative (Negative) Urine Bilirubin Negative (Negative) Urine Urobilinogen Negative (Negative) Ur Leukocyte Esterase 2+ H (Negative) Urine WBC (Auto) 6-10 H (0-5) /hpf Urine RBC (Auto) 0-2 (0-2) /hpf U Hyaline Cast (Auto) 0-2 (0-2) /lpf U Epithel Cells (Auto) 6-10 H (0-2) /hpf Urine Bacteria (Auto) None Seen (None Seen) Urine Comment Imaging Data Radiologist's Impression: Abdomen/Pelvis CT 03/04/25 00:54 EXAM: CT abd pelvis IV con only CLINICAL HISTORY: right side pain TECHNIQUE: CT of the abdomen and pelvis was performed with IV contrast (93 cc Optiray 320), with the following protocol: axial images with, and reconstructed coronal and sagittal images. One of the following dose reduction techniques was utilized for this exam: Automated exposure control, adjustment of the mA and/or kV according to patient size, and use of iterative reconstruction. (CTDI: 21.12 mGy, DLP: 1048.60 mGy*cm) COMPARISON: Prior CT dated 05/12/2016 FINDINGS: Appendix: The appendix is retrocecal in position. It is thickened (reaching 13 mm in girth), with heterogeneous peripheral enhancement as well as chance-appendiceal fat stranding and peritoneal reflection thickening. No evidence of appendiceal abscess or perforation. Bowel: The cecum and ascending colon are distended and loaded with fecal matter; the cecum reaches 5.9 cm in maximum diameter. Multiple sigmoid colon diverticulae, with no related pathological mural thickening or chance-colic fat stranding. No evidence of bowel obstruction or wall thickening. Liver: Enlarged in size, measuring 19 cm in the long axis. Normal shape and density. Left lobe segment 2 hypodense focal lesion, measuring 16 x 13 mm (was about 6 x 5 mm). Hepatic vasculature and biliary ducts are unremarkable. Gallbladder and Biliary System: The gallbladder is normal in size and shape. No wall thickening, pericholecystic fluid, or gallstones were identified. The common bile duct is normal in caliber without dilation. Pancreas: The pancreatic head, body, and tail are visualized and appear normal in size and density. No pancreatic masses or calcifications were noted. The pancreatic duct is not dilated. Spleen: Normal in size, shape, and density. No splenic lesions or masses were identified. Kidneys and Adrenal Glands: Both kidneys are normal in size, shape, position, and cortical thickness. No renal calculi or hydronephrosis. The adrenal glands are unremarkable. Urinary Bladder: Normal in contour and wall thickness. No intraluminal lesions identified. Uterus and Cervix: Normal in size and contour. No masses or abnormal thickening. Ovaries: Not well visualized, but no gross adnexal lesions noted. Peritoneal and Retroperitoneal Structures: No free fluid or abnormal fluid collections were identified within the abdomen or pelvis. No lymphadenopathy was noted. Bones and Soft Tissues: The bones and soft tissues are unremarkable. No fractures or abnormal masses were identified. IMPRESSION: 1. Picture suggestive of acute appendicitis - new. 2. Cecal and ascending colon distention with fecal load. 3. Non-complicated sigmoid diverticulosis - new. 4. Left hepatic lobe non-enhancing cystic-looking focal lesion - increased in size. Electronically signed by Bg Singh 03-04-2025 03:27 AM Gallbladder Ultrasound 03/04/25 00:54 EXAM: US gallbladder CLINICAL HISTORY: Right side pain. TECHNIQUE: Limited ultrasound of the liver and gallbladder was performed in greyscale and Doppler. Multiple images were obtained in transverse and longitudinal planes. COMPARISON: CT dated 03/04/2025 01:08:00 OFFICE ANALYST was reviewed. FINDINGS: Liver: Mild hepatomegaly (16.6 cm) with normal echotexture. Anechoic structure adjacent to the left portal vein demonstrates no internal flow or echogenic debris. The remaining hepatic vasculature is unremarkable. Gallbladder: Normal gallbladder wall thickness (1.5 mm). The gallbladder is normal in size and contour. No cholelithiasis, wall thickening, pericholecystic fluid, or sonographic Carbajal sign. Biliary Tree: The common bile duct measures 4.9 mm (normal caliber). No biliary dilation or choledocholithiasis. Pancreas: Visualized portions appear normal; evaluation limited by overlying bowel gas. The pancreatic duct measures 2 mm. Right Kidney: No hydronephrosis, masses, or calculi. IMPRESSION: 1. No cholelithiasis. 2. Anechoic structure adjacent to the left portal vein without flow, correlating with prior CT consistent with a benign cyst. Unchanged. 3. Mild hepatomegaly. Unchanged. 4. Findings correlate with prior recent CT abdomen. Electronically signed by Bg Singh 03-04-2025 04:49 AM MDM Narrative Physical exam and history were performed. Nursing notes, EMR, and Medication List were personally reviewed. No social concerns were identified as barriers to patients care. History was provided by the Patient. Patient appears to have right-sided abdominal pain bringing her to the ER. This is slightly worse in the right lower quadrant, however there is right upper quadrant tenderness as well. IV access was established and labs were obtained. Patient was hydrated normal saline and given IV morphine and IV Zofran for symptoms. She was sent to both CT scan and ultrasound for evaluation of symptoms. An order was placed for continuous cardiac monitoring. The monitor shows a rate of 62 with normal sinus rhythm. Patient's blood work is as above and was reviewed. She does have an elevated white blood cell count of 13,000. She does not have significant anemia, bandemia, or gross electrolyte imbalance. Lipase and transaminases are not diagnostic. She is not . CT scan and ultrasound were independently reviewed by myself and radiology. CT scan is concerning for acute appendicitis. Ultrasound also is concerning for possible portal vein thrombosis. Escalation of care was considered, and case was discussed with both the on-call surgical team as well as the on-call medicine team. Patient is penicillin allergic and was given Cipro and Flagyl here in the ER. She was kept n.p.o. Please see the surgical team dictation as well as the hospitalist dictation for further patient course, plan, disposition. The chart was completed utilizing [employer] Speech Voice Recognition Software. Grammatical errors, random word insertions, pronoun errors, and incomplete sentences are an occasional consequence of this system due to software limitations, ambient noise, and hardware issues. Any formal questions or concerns about the content, text, or information contained within the body of this dictation should be directly addressed to the provider for clarification. Impression & Plan Appendicitis Discharge Plan Visit Data Chief Complaint: Abdominal Pain Stated Complaint: RT ABD PAIN ED Provider: Issa Galvan ED Midlevel Provider: Nasir Durand Discharge Problem: Appendicitis Patient Disposition: Admitted As Inpatient Condition: Fair Discharge Instructions Interventions: ED Discharge Assessment Last Done: 03/04/25 05:10
--- NOTE | 2025-03-04 07:30 | XRay Report ---
EXAM: XR chest 1V portable CLINICAL HISTORY: pre-op TECHNIQUE: An X-ray image of the chest is obtained in AP projection. COMPARISON: 06/29/2015 CT. FINDINGS: Pulmonary Parenchyma: No evidence of consolidation, collapse, or focal opacities. No pulmonary nodules are identified. No evidence of pleural effusion or pleural thickening. Heart and Mediastinum: Heart size and shape are normal. No mediastinal widening or masses. No hilar or mediastinal lymphadenopathy. Bony Thorax: Bony thorax appears intact without fractures or deformities. Soft Tissues: Soft tissues overlying the chest wall are unremarkable. IMPRESSION: No interval changes, no acute cardiopulmonary abnormalities are identified. Electronically signed by Bg Singh 03-04-2025 07:30 AM
[2025-03-04 07:35] LABS: Hematocrit (blood only) 35.5 % (37.0-47.0); Hemoglobin 11.9 g/dl (12.0-16.0); Immature Granulocytes # (auto) 0.02 K/uL (0.01-0.20); Immature Granulocytes % (auto) 0.2 %; Mean Corpuscular Hemoglobin 28.8 pg (25.0-34.0); Mean Corpuscular Volume 86.0 fL (80.0-100.0); Platelet Count 261 K/uL (130-400); RDW Standard Deviation 39.5 fL (36.4-46.3); Red Blood Count 4.13 M/uL (4.20-5.40); White Blood Count 8.57 K/ul (4.8-10.8)
[2025-03-04 07:52] LABS: Anion Gap 6.0 (3-11); Blood Urea Nitrogen 12.0 mg/dl (6-23); Calcium 8.5 mg/dl (8.6-10.3); Carbon Dioxide 27.0 mmol/L (21-32); Chloride 106.0 mmol/L (98-107); Creatinine Clr Calc Pharmacy 76.2 ml/min; Glucose 108.0 mg/dl (70-99(Fasting)); Magnesium 1.7 mg/dl (1.7-2.4); Potassium 3.9 mmol/L (3.5-5.1); Sodium 139.0 mmol/L (136-145)
--- NOTE | 2025-03-04 09:54 | History & Physical Bridge Note ---
Date of Service March 04, 2025 History & Physical Bridge Note I have examined the patient, reviewed the History & Physical and in the interval since the performance of the History & Physical I have noted the following changes of clinical significance: no changes noted Supervising Physician Co-Signing Physician Notes I independently saw and examined the patient, and I agree with the assessment and plan of care.
[2025-03-04] MEDS ORDERED: LIDOCAINE 2% 2 ML VIAL/AMP(20MG/ML) INFIL ONE (10:29)
[2025-03-04] MEDS ORDERED: ROCURONIUM BROMIDE 10 MG/ML 5 ML VIAL IV ONE (10:29)
[2025-03-04] MEDS ORDERED: DEXAMETHASONE SOD INJ 4 MG/ML VIAL ONE (10:29)
[2025-03-04] MEDS ORDERED: ONDANSETRON INJ 2 MG/ML 2 ML VIAL ONE (10:29)
[2025-03-04] MEDS ORDERED: PROPOFOL IV EMULSION 10 MG/ML 20 ML VIAL IV ONE (10:29)
[2025-03-04] MEDS ORDERED: MIDAZOLAM HCL 1 MG/ML 2ML VIAL ONE (10:30)
[2025-03-04] MEDS ORDERED: KETAMINE HCL 10MG/ML SYR ONE (10:40)
[2025-03-04] MEDS: LACTATED RINGER'S 1,000 ML IV SCH (11:25)
[2025-03-04] MEDS ORDERED: PROMETHAZINE HCL 6.25 MG in SODIUM CHLORIDE 0.9% 50 ML IV PRN (11:34)
[2025-03-04] MEDS ORDERED: DROPERIDOL 5 MG/2 ML VIAL IV PRN (11:34)
[2025-03-04] MEDS ORDERED: ATROPINE SULFATE 0.1 MG/ML 10ML SYR IV PRN (11:34)
--- NOTE | 2025-03-04 11:34 | Anesthesiology Consultation ---
Date of Service March 04, 2025 Assessment & Plan ASA ASA2 Proposed Anesthesia Anesthesia Type: General Risk / Benefits Reviewed With: PT / POA / Parent / Guardian, Accepts Plan and Informed Consent Obtained History Surgery Operation Date: 03/04/25 11:15 Proposed Procedures p Robotic assisted Laparoscopic Appendectomy - Zuleika Bruce MD Height/Weight Height: 5 ft 6 in Weight: 74.3 kg Allergies Allergy/AdvReac Type Severity Reaction Status Date / Time pollen extracts Allergy Intermediate ITCHY Verified 03/04/25 10:55 EYES, SNEEZING Penicillins AdvReac Intermediate nausea/vomi Verified 03/04/25 10:55 ting Medications Home Medications Medication Instructions Recorded Confirmed Last Taken albuterol sulfate 90 mcg/actuation 1 inh inhalation DIRECTED PRN 03/04/25 03/04/25 Unknown aerosol inhaler Shortness Of Breath Or Wheezing montelukast 10 mg tablet 10 mg PO DAILY PRN Congestion 03/04/25 03/04/25 Unknown (Singulair) Active Medications Generic Name Dose Route Start Last Admin Trade Name Edwardq PRN Reason Stop Dose Admin Sodium Chloride 1,000 mls @ 100 mls/hr 03/04/25 04:30 03/04/25 05:02 Nss IV 03/07/25 04:29 100 mls/hr .Q10H BAMBI Administration Lactated Ringer's 1,000 mls @ 15 mls/hr 03/04/25 11:00 03/04/25 11:25 Lr IV 03/07/25 10:59 15 mls/hr .Q24H BAMBI Administration NPO Date Last Intake of Fluids: 03/03/25 Time Last Intake of Fluids: 20:00 Date Last Intake of Solids: 03/03/25 Time Last Intake of Solids: 18:00 Past Medical History Medical History History of menorrhagia Migraine headache History of abnormal mammogram Exercise / Class Metabolic Activity II 4-5 Yardwork/Stairs/Walk up hill Past Family History Family History Other No significant family history Past Surgical History Surgical History Status post hysteroscopic ablation of endometrium S/P section S/P breast biopsy Past Anesthesia History No Hx of Anesthesia Complications and No Family Hx of Anesthesia Complications History of PONV No Hx of PONV and No Hx of Motion Sickness Social History Smoking Status: Never smoker Hx Alcohol Use: No Hx Substance Use: Yes 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 Physical Exam Vital Signs Last Vital Signs Temp 36.9 C 03/04/25 10:56 Pulse 76 03/04/25 10:56 Resp 18 03/04/25 10:56 BP 116/74 03/04/25 10:56 Pulse Ox 97 03/04/25 10:56 O2 Del Method Room Air 03/04/25 10:56 Constitutional no acute distress ENMT Mouth: no dentition abnormality Thyromental Distance: > or= 3.5 Finger Breadths Mallampati Class: III Neck normal visual inspection Respiratory normal respiratory effort; no respiratory distress Auscultation: lungs clear to auscultation bilaterally Cardiovascular Rate/Rhythm: regular rate and regular rhythm Heart Sounds: no murmur Musculoskeletal Spine: normal cervical ROM Psychiatric Orientation: alert and oriented x 3 Testing Laboratory Results 03/04/25 07:16 03/04/25 07:16 PT 10.0 Seconds (9.0-12.0) 03/04/25 00:49 INR 0.9 (0.9-1.1) 03/04/25 00:49 APTT 26 Seconds (21-31) 03/04/25 00:49 Urine Color Yellow 03/04/25 02:12 Urine Appearance Clear (Clear) 03/04/25 02:12 Urine pH 7.0 (4.5-7.5) 03/04/25 02:12 Ur Specific Jayess 1.025 (1.000-1.030) 03/04/25 02:12 Urine Protein Negative (Negative) 03/04/25 02:12 Urine Glucose (UA) Negative (Negative) 03/04/25 02:12 Urine Ketones Negative (Negative) 03/04/25 02:12 Urine Nitrite Negative (Negative) 03/04/25 02:12 Ur Leukocyte Esterase 2+ (Negative) H 03/04/25 02:12 Urine WBC (Auto) 6-10 /hpf (0-5) H 03/04/25 02:12 Urine RBC (Auto) 0-2 /hpf (0-2) 03/04/25 02:12 U Hyaline Cast (Auto) 0-2 /lpf (0-2) 03/04/25 02:12 U Epithel Cells (Auto) 6-10 /hpf (0-2) H 03/04/25 02:12 Urine Bacteria (Auto) None Seen (None Seen) 03/04/25 02:12 03/04/25 00:59 POC Glucose (other) 114 H Day of Procedure Evaluation. Date of Surgery March 04, 2025 Height/Weight Height: 5 ft 6 in Weight: 74.3 kg Vital Signs Last Vital Signs Temp 36.9 C 03/04/25 10:56 Pulse 76 03/04/25 10:56 Resp 18 03/04/25 10:56 BP 116/74 03/04/25 10:56 Pulse Ox 97 03/04/25 10:56 O2 Del Method Room Air 03/04/25 10:56 Allergies Allergy/AdvReac Type Severity Reaction Status Date / Time pollen extracts Allergy Intermediate ITCHY Verified 03/04/25 10:55 EYES, SNEEZING Penicillins AdvReac Intermediate nausea/vomi Verified 03/04/25 10:55 ting Medications Home Medications Medication Instructions Recorded Confirmed Last Taken albuterol sulfate 90 mcg/actuation 1 inh inhalation DIRECTED PRN 03/04/25 03/04/25 Unknown aerosol inhaler Shortness Of Breath Or Wheezing montelukast 10 mg tablet 10 mg PO DAILY PRN Congestion 03/04/25 03/04/25 Unknown (Singulair) Active Medications Generic Name Dose Route Start Last Admin Trade Name Freq PRN Reason Stop Dose Admin Sodium Chloride 1,000 mls @ 100 mls/hr 03/04/25 04:30 03/04/25 05:02 Nss IV 03/07/25 04:29 100 mls/hr .Q10H BAMBI Administration Lactated Ringer's 1,000 mls @ 15 mls/hr 03/04/25 11:00 03/04/25 11:25 Lr IV 03/07/25 10:59 15 mls/hr .Q24H BAMBI Administration Past Anesthesia History No Hx of Anesthesia Complications and No Family Hx of Anesthesia Complications History of PONV No Hx of PONV and No Hx of Motion Sickness NPO Date Last Intake of Fluids: 03/03/25 Time Last Intake of Fluids: 20:00 Date Last Intake of Solids: 03/03/25 Time Last Intake of Solids: 18:00 HCG & FBG Results 03/04/25 00:59 POC Glucose (other) 114 H Home Medications Home Medications Medication Instructions Recorded Confirmed Last Taken albuterol sulfate 90 mcg/actuation 1 inh inhalation DIRECTED PRN 03/04/25 03/04/25 Unknown aerosol inhaler Shortness Of Breath Or Wheezing montelukast 10 mg tablet 10 mg PO DAILY PRN Congestion 03/04/25 03/04/25 Unknown (Singulair) Active Medications Generic Name Dose Route Start Last Admin Trade Name Edwardq PRN Reason Stop Dose Admin Sodium Chloride 1,000 mls @ 100 mls/hr 03/04/25 04:30 03/04/25 05:02 Nss IV 03/07/25 04:29 100 mls/hr .Q10H BAMBI Administration Lactated Ringer's 1,000 mls @ 15 mls/hr 03/04/25 11:00 03/04/25 11:25 Lr IV 03/07/25 10:59 15 mls/hr .Q24H BAMBI Administration Exercise / Class Metabolic Activity Metabolic Activity: II 4-5 Yardwork/Stairs/Walk up hill Physical Exam Constitutional: no acute distress Mouth: no dentition abnormality Thyromental Distance: > or= 3.5 Finger Breadths Mallampati Class: III Neck: + visual inspection normal Respiratory: + respiratory effort normal and + clear to auscultation bilaterally; no respiratory distress Cardiovascular: + regular rate and + regular rhythm; no murmur Musculoskeletal: no limited cervical ROM Psychiatric: + alert and + oriented x 3 ASA ASA2 Proposed Anesthesia Proposed Anesthesia: General Risk / Benefits Reviewed With: PT / POA / Parent / Guardian, Accepts Plan and Informed Consent Obtained
[2025-03-04] MEDS ORDERED: PHENYLEPHRINE HCL 10 MG/ML VIAL ONE (12:25)
[2025-03-04] MEDS ORDERED: ceFAZolin 330 MG/ML 1 GM VIAL ONE ×2 (12:39)
[2025-03-04] MEDS ORDERED: SODIUM CHLORIDE 0.9% PF INJ 10 ML VIAL ONE ×2 (12:39)
[2025-03-04] MEDS: BUPIVACAINE 0.5 % 5 MG/1 ML MPF 30ML VIAL ONE (13:24)
--- NOTE | 2025-03-04 13:27 | Post Operative Brief Note ---
PG Immediate Post Op with CF Date of Surgery March 04, 2025 Pre & Post Diagnosis Operation Date: 03/04/25 11:15 Pre-Op Diagnosis: appendicitis Post-Op Diagnosis: appendicitis I identified the patient and participated in the time-out.: Yes Procedure Operation Date: 03/04/25 11:15 Actual Procedures p Robotic assisted Laparoscopic Appendectomy(Not Applicable) - Zuleika Bruce MD Surgeon Zuleika Bruce MD Hide Grader Caridad Kellogg PA-C, Dr. Jose Pérez--iqbal Estimated Blood Loss 10 Findings Consistent with Post-Op Diagnosis acutely inflamed appendix, consistent with appendicitis Fluids 800 ml Specimens Specimen Description: A. appendix Anesthesia Type General Complications none Disposition Disposition: Recovery Room
[2025-03-04] MEDS ORDERED: SUGAMMADEX SODIUM 200 MG/2 ML VIAL IV ONE (13:31)
--- NOTE | 2025-03-04 13:49 | Operative Report ---
PG Post Operative Report Pre & Post Diagnosis Operation Date: 03/04/25 11:15 Pre-Op Diagnosis: appendicitis Post-Op Diagnosis: acute non perforated appendicitis I identified the patient and participated in the time-out.: Yes Procedure Operation Date: 03/04/25 11:15 Actual Procedures p Robotic assisted Laparoscopic Appendectomy(Not Applicable) - Zuleika Bruce MD CPT 79624 Surgeon Zuleika Bruce MD School Psychologist Caridad Kellogg PA-C, Dr. Jose Pérez--iqbal Estimated Blood Loss 10 Findings Consistent with Post-Op Diagnosis Specimens appendix Drains none Anesthesia Type General Complications none Disposition Disposition: Recovery Room Indications This is a 59-year-old female with a history of worsening abdominal pain. Workup reveals acute appendicitis. She presents now after admission and IV antibiotics for robotic assisted laparoscopic appendectomy. The risks of procedure were discussed with the patient and they include bleeding, infection, injury to surrounding structures, need for further procedures, appendiceal stump leak, wound issues to include wound dehiscence, hernia, and infection, and cardiopulmonary events that can occur. Alternatives include no surgery, which patient declines. Patient wishes to proceed with surgery. All questions were answered. Description of Procedure Informed consent was verified and site of surgery was verified and the patient was brought back to the operating room. General anesthesia was administered. She was in the supine position. Her abdomen was prepped and draped in the usual sterile fashion. A surgical timeout was performed and there were no issues. Next, a left upper quadrant incision was made and a Veress needle was inserted and the abdomen was insufflated to about 15 mmHg. Next, the 8 mm robotic trocar with a 30 degree laparoscope was inserted under direct vision. The abdomen was inspected, there was no evidence of any injuries to any structures from into into the abdominal cavity. 2 additional ports were placed, one was a suprapubic to the left and 1 was in the left mid abdomen. Both of these were also 8 mm ports, after using the camera under direct vision to upsize the left upper quadrant port to a 12 mm port. Next, the robotic camera was placed in the left mid abdomen port and the patient was positioned in Trendelenburg and turned to the left and the robot was docked after localizing the area of concern in the right lower quadrant. Next, using robotic laparoscopic assistance, the appendix was identified and was seen to have inflammation. It was gently grasped and the mesentery was divided using the energy device. Next, the base of the appendix was identified going into the cecum. It was divided using the robotic stapler. Care was taken to ensure that the appendix was transected at its base going into the cecum and that there was no narrowing of the ileocecal valve. The appendix was placed in Endo Catch bag and removed under. Next, the staple line was examined, there was no evidence of any bleeding or succus drainage. The pelvis was examined, there was no concerning fluid. There was no other concerning findings in the abdomen. Next, the fascia of the left upper quadrant port was closed under direct vision using the Mick Hager device and 0 Vicryl suture. The other ports were removed and the skin of all the ports were closed using 4 Monocryl in a subcuticular technique after injecting local anesthesia. Sterile dressing was applied and the patient was weaned off anesthesia and transferred to recovery in stable condition. She tolerated the procedure well. I attest to the content of the Intraoperative Record and any orders documented therein. Any exceptions are noted below.
[2025-03-04] MEDS: HYDROmorphone INJ 2 MG/ML SYR/VIAL IV PRN (13:57)
[2025-03-04] MEDS ORDERED: SUCCINYLCHOLINE CHLORIDE 20 MG/ML 10 ML VIAL IV ONE (14:17)
--- NOTE | 2025-03-04 14:38 | Discharge Summary ---
Date of Service March 04, 2025 Admission HPI Per Admitting Provider 59-year-old female with past medical history significant for irritable bowel syndrome, asthma moderate persistent presents with abdominal pain. Pain started tonight at 10 PM in the epigastric and the right side of the abdomen region. Pain was 8/10 in severity when she came in and with pain medication pain is improved. No nausea. No fevers. No chest pain or shortness of breath. No headache. No runny nose or sore throat. No cough. Normal bowel and bladder movements. Hemodynamics are okay. Past medical history. As mentioned above. Past surgical history. Breast lesion excision. . Colonoscopy biopsy. EGD. Endometrial ablation. Social history. . No smoking. No alcohol use. No drug use. Family history. Father had dementia. Stroke. Brother had epilepsy. Maternal grandmother had stroke. Admission Exam Per Admitting Provider General-Not in distress Head- atraumatic Eyes- PERRL. ENT- oropharynx clear Neck- supple, no JVD. Lungs- clear to auscultation no wheezing or crackles Heart- regular rhythm; no murmur, no gallop. Abdomen- normal bowel sounds, soft, tenderness in ruq and rlq region, mild guarding, no distension Extremities- no pretibial edema, no erythema seen Neuro- alert, oriented PERRL, no facial palsy; no dysarthria; moves extremities Principal Diagnosis Acute appendicitis status post robotic assisted laparoscopic appendectomy Discharge Exam Constitutional: WD/WN, vitals as above, NAD, sitting up in bed, pleasant, conversing easily Respiratory: normal respiratory effort, lungs clear to auscultation, no wheeze, rales, rhonchi. Normal insp/exp effort, no accessory muscle use Cardiovascular: RRR, no murmur, no edema Vessels: no JVD or carotid bruit Abdomen: Tenderness in right lower quadrant. No rigidity. Bowel sound present. No distention Musculoskeletal: no cyanosis or clubbing, extremities motor strength 5/5 Skin: no rashes, warm and dry normal turgor Neurologic: PERRL, EOMI, accommodation nl, no face palsy, no dysarthria CN's II- XI intact bilaterally and moves all extremities Psychiatric: A+Ox3, euthymic affect Discharge Data Allergies Allergy/AdvReac Type Severity Reaction Status Date / Time pollen extracts Allergy Intermediate ITCHY Verified 03/04/25 10:55 EYES, SNEEZING Penicillins AdvReac Intermediate nausea/vomi Verified 03/04/25 10:55 ting Consultations 03/04/25 03:50 Consult General Surgery Stat ED Decision to Admit Stat 03/04/25 08:00 Consult Gastroenterology Routine Procedures Performed Operation Date: 03/04/25 11:15 Actual Procedures p Robotic assisted Laparoscopic Appendectomy(Not Applicable) - Zuleika Bruce MD Ordered Studies 03/04/25 00:54 CT abd pelvis IV con only Stat US gallbladder Stat Hospital Course (1) Appendicitis: 59-year-old female with past medical history significant for irritable bowel syndrome, asthma moderate persistent presents with abdominal pain. Abdomen pain is started overnight with severity of 8/10. Leukocytosis present at admission CT of the abdomen/pelvis suggestive of acute appendicitis Surgery was consulted for comanagement; patient underwent robotic assisted laparoscopic appendectomy. Patient was discharged home with instructions to follow-up with surgery and PCP. Please note the above document was generated using voice recognition software. It may contain grammatical, syntax or spelling errors. Any formal questions or concerns about the content, text or information contained within the body of this dictation should be directly addressed to the provider for clarification Total Time Total Time Spent Total Time Spent (In Minutes): 45 Total Time Includes: Examination of the Patient, Discharge Planning, Medication Reconciliation, Communication With Other Providers and Other Discharge Plan Discharge Items Patient Disposition: Home - Self-Care Reason For Visit: APPENDICITIS, PORTAL VEIN THROMBUS Discharge Diagnosis: acute appendicitis Activity: Per Instructions section Bathing Comment: You may shower. Do NOT soak in bath tubs, hot tubs, or pools x2 weeks Non-emergency contact: Primary Care Provider and Surgeon Call non-emergency contact if: your pain is not controlled, your temperature is above 101.5, your wound has increased redness and your wound has increased drainage Follow-up/Referrals: Dilcia Jaimes DO [Primary Care Provider] - (Date & Time 03/08/2025 11:20 AM Provider: Dilcia Jaimes DO [facility] ) Zuleika Bruce MD [Surgeon] - (follow up in 2 weeks for your post-op check up) Diet: Regular Addtl Attending Provider Instructions: SPECIAL CARE INSTRUCTIONS: * You have skin glue called Dermabond over your incisions. You may shower with this on. Do NOT pick at this as it will tend to fall off on it's own within 7-10 days * You may shower 03/05/2025 . NO soaking in bath tubs, hot tubs, or pools for 2 weeks * No lifting greater than 10lbs. No exercise until cleared by surgeon. Light walking is accepted. * No driving while taking narcotic pain medication * No drinking alcohol while taking narcotic pain medication * May use Ibuprofen/Tylenol over the counter for pain as tolerated. Do not exceed 3grams of Tylenol per 24 hours * Expect some swelling and bruising. * Diet - resume your regular diet CALL YOUR DOCTOR IF: * Temperature above 101 degrees, nausea/vomiting, fever/chills * Pain not relieved by pain medicine ordered * There is increased drainage or redness from any incision * You have any unanswered questions or concerns [phone]. FOLLOW UP VISIT: If not already scheduled, please call the office for a follow-up visit. Office Pending Studies at Discharge: Yes Studies:: surgical pathology Stand-Alone Forms: [facility] Gravy, Smoking Cessation Medications and DC Order Prescriptions: New oxycodone 5 mg tablet 5 mg PO Q6H PRN (Reason: pain) Qty: 12 0RF Rx Instructions: Initial therapy post surgery Continued montelukast [Singulair] 10 mg Tablet 10 mg PO DAILY PRN (Reason: Congestion) albuterol sulfate 90 mcg/actuation Hfa Aerosol Inhaler 1 inh INHALATION DIRECTED PRN (Reason: Shortness Of Breath Or Wheezing) Discharge Orders: Discharge Order (Routine); Ordered 03/04/25 Ordered By: Zen Smiley Admission Data Admit Date/Time: 03/04/25 04:41 Attending Provider: Zen Smiley Admit Provider: Ok López Primary Care Provider: Dilcia Jaimes Other Providers: Barry Lovell; Zuleika Bruce; Ok López
--- NOTE | 2025-03-04 14:48 | Anesthesiology Progress Note ---
Date of Service March 04, 2025 Anesthesia Post Procedure Vital Signs Vital Signs: Temp Pulse Pulse Pulse Resp BP BP 03/04/25 14:30 81 12 106/75 03/04/25 14:20 36.7 C 79 16 113/71 03/04/25 14:10 76 12 102/69 03/04/25 14:00 72 14 116/69 03/04/25 13:50 36.1 C L 69 15 116/69 03/04/25 10:56 36.9 C 76 18 116/74 03/04/25 08:05 36.5 C 83 18 03/04/25 05:48 36.5 C 79 18 03/04/25 05:10 36.6 C 80 18 135/82 03/04/25 04:55 90 03/04/25 04:00 36.7 C 90 18 03/04/25 02:00 36.7 C 73 19 03/04/25 01:09 82 03/04/25 00:52 36.7 C 86 22 03/04/25 00:39 36.4 C L 90 19 130/85 BP Pulse Ox O2 Del Method O2 Flow Rate 03/04/25 14:30 92 Room Air 0 03/04/25 14:20 93 Room Air 0 03/04/25 14:10 96 Oxymask 4 03/04/25 14:00 98 Oxymask 6 03/04/25 13:50 96 Oxymask 6 03/04/25 10:56 97 Room Air 03/04/25 08:05 120/79 96 Room Air 03/04/25 05:48 144/83 H 97 Room Air 03/04/25 05:10 96 Room Air 03/04/25 04:55 03/04/25 04:00 165/97 H 93 Room Air 03/04/25 02:00 121/81 93 Room Air 03/04/25 01:09 03/04/25 00:52 155/98 H 96 Room Air 03/04/25 00:39 97 Room Air Pain Intensity Right Lower Abdomen: Pain Intensity: 4 Transfer of Care Handoff Completed per policy Notes Mental Status: alert / awake / arousable and participated in evaluation Nausea / Vomiting: adequately controlled Pain: adequately controlled Airway Patency, RR, SpO2: stable & adequate BP & HR: stable & adequate Hydration State: stable & adequate Anesthetic Complications: no major complications apparent and Pt Satisfied with anesthetic care
[2025-03-04] MEDS: metroNIDAZOLE 500 MG/100 ML BAG IV SCH (15:02)
[2025-03-04] MEDS ORDERED: CIPROFLOXACIN / D5W 400 MG/200 ML BAG IV SCH (16:00)
[2025-03-04 17:54] VITALS: BP 108/75; PULSE 70; RESP 18; TEMP 97.5; O2SAT 92
[2025-03-04] MEDS: ACETAMINOPHEN 1,000 MG/100 ML VIAL IV PRN (18:31)
== END 2025-03-04 20:10 | disposition home or self-care (01) | DRG 397 ==
LOC: ED 00:36 → 3W 04:41